=== PATIENT | male | born 1980 | race Caucasian/White ===

== ENCOUNTER 2023-02-21 01:21 | Outpatient (CLI) | payer SELFPAY | END 2023-02-21 01:22 | disposition home or self-care (01) | LOC: AMB 03-03 05:01 | PROVIDERS: Visit Provider Internal Medicine | DX: R06.09 Other forms of dyspnea (principal) | CPT/HCPCS: A0998 ==

== ENCOUNTER 2023-08-26 00:26 | Outpatient (CLI) | payer OTHER, SELFPAY | END 2023-08-26 00:27 | disposition home or self-care (01) | LOC: AMB 08-29 09:47 | PROVIDERS: PCP Family Medicine; Visit Provider Family Medicine | DX: F10.129 Alcohol abuse with intoxication, unspecified (principal) | CPT/HCPCS: A0998 ==

== ENCOUNTER 2023-08-26 00:59 | Outpatient (CLI) | payer OTHER, SELFPAY | END 2023-08-26 01:00 | disposition home or self-care (01) | LOC: AMB 09-01 11:18 | PROVIDERS: PCP Family Medicine; Visit Provider Family Medicine | DX: S01.81XA Laceration without foreign body of other part of head, initial encounter (principal); F10.129 Alcohol abuse with intoxication, unspecified; W01.190A Fall on same level from slipping, tripping and stumbling with subsequent striking against furniture, initial encounter; Y92.003 Bedroom of unspecified non-institutional (private) residence as the place of occurrence of the external cause | CPT/HCPCS: A0425; A0429 ==

== ENCOUNTER 2023-08-26 01:22 | Emergency (ER) | payer OTHER, SELFPAY ==
[2023-08-26 01:29] VITALS: BP 127/91; PULSE 75; RESP 16; TEMP 36.2; O2SAT 95; BMI 32.7
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
== END 2023-08-26 03:17 | disposition home or self-care (01) ==
LOC: ED 02:14
PROVIDERS: Emergency Provider Family Medicine; PCP Family Medicine
DX: S01.81XA Laceration without foreign body of other part of head, initial encounter (principal); W01.190A Fall on same level from slipping, tripping and stumbling with subsequent striking against furniture, initial encounter
CPT/HCPCS: 99282

== ENCOUNTER 2024-03-20 23:36 | Outpatient (CLI) | payer OTHER, SELFPAY ==
--- OUTSIDE RECORDS SUMMARY | 2024-03-25 07:14 | XMS_ITS | Continuity of Care Document ---
Author Name [facility] Organization [facility] Care Team Providers Care Wood Heel Fitter Machine Name Role Phone [facility] Unavailable Unavailable Immunizations Combined list of available immunizations from the Department of Defense and Veterans Affairs facilities. Immunization Series Date Given Administered By Site Reaction Lot Number CVX Code Drug Director Religious Education Status Comments Source COVID-19 ([employer] MRNA, LNP-S, PF, 30 MCG/0.3 ML DOSE 2 2020 208 complet ed PFR; [id number]; 1 [facility] COVID-19 (PFIZER), MRNA, LNP-S, PF, 30 MCG/0.3 ML DOSE 1 2020 208 complet ed PFR; [id number]; 1 [facility]
== END 2024-03-20 23:37 | disposition home or self-care (01) ==
LOC: AMB 03-25 07:13
PROVIDERS: PCP Family Medicine; Visit Provider Family Medicine
DX: R45.851 Suicidal ideations (principal)
CPT/HCPCS: A0425; A0427

== ENCOUNTER 2024-03-21 00:26 | Emergency (ER) | payer OTHER, SELFPAY ==
[2024-03-21] VITALS (66 sets, daily range): BP systolic 110–170; BP diastolic 59–111; PULSE 63–90; RESP 20; TEMP 36.8; O2SAT 88–96
--- NOTE | 2024-03-21 00:49 | ED.GENADULT ---
HPI - General Adult General Chief complaint: Psychiatric Problem/Disorder <Heidi June MD - Last Filed: 03/21/24 23:58> Stated complaint: Mental health <Heidi June MD - Last Filed: 03/21/24 23:58> Time Seen by Provider: 03/21/24 00:44 <Heidi June MD - Last Filed: 03/21/24 23:58> Source: EMS <Heidi June MD - Last Filed: 03/21/24 23:58> Mode of arrival: EMS <Heidi June MD - Last Filed: 03/21/24 23:58> Limitations: no limitations <Heidi June MD - Last Filed: 03/21/24 23:58> History of Present Illness HPI narrative: 43-year-old male that I have previously cared for presents to the emergency department by EMS because of suicidal ideation. Patient heavily intoxicated, found by family in such state as well. He had texted several family members the I indicating that he was sorry though he stated no specific reason and that he was going to end his life. There was also a written note at the foot of his bed with similar language found by family when they went to check on him. He was drunk but breathing in his bed, difficult to arouse but not coma toes. There was an old bottle of bupropion in the room but no evidence to suggest that he had taken any. He does not have access to firearms or weapons. He has not been showing any signs of recent self-injury. He has a long standing history of alcoholism. I have cared for him previously with mild injuries secondary to intoxication. He is heavily intoxicated and does not give any additional history upon arrival. EMS has placed him on a hold. History from patient is completely limited by his intoxicated state. Review of the records does not suggest that he is on long-term medications. He has not previously been known to abuse other drugs besides alcohol. We have not previously known him to have seizures. I cannot tell if he has been treated inpatient in the past. I do not know if he has had prior suicide attempts. Past medical history is limited to records only. It does not appear as though he has long-term medical problems or recent surgeries. Chronic alcoholism. There is an ex- listed in his emergency contacts but he has been documented in the last few visits to have a romantic male partner. ROS is unable to be obtained but I did review with EMS and they still had not noted any signs of illness or recent significant changes in health status from the family. <Heidi June MD - Last Filed: 03/21/24 23:58> Related Data Home medications: Home Medications ?Medication ?Instructions ?Recorded ?Confirmed Unobtainable 03/21/24 03/21/24 <Heidi June MD - Last Filed: 03/21/24 23:58> Allergies/adverse reactions: Allergies Allergy/AdvReac Type Severity Reaction Status Date / Time amoxicillin Allergy Verified 02/21/23 02:25 penicillin G Allergy Verified 02/21/23 02:25 <Heidi June MD - Last Filed: 03/21/24 23:58> [facility] Social History: Social History Smoking Status: Current every day smoker How often do you have a drink containing alcohol: 2-4 times a month AUDIT-C Alcohol total score: 2 Non-prescribed substance use: denies use <Heidi June MD - Last Filed: 03/21/24 23:58> Exam Const: Vital Signs, click to edit/add: Vital Signs - 24 hr 03/21/24 00:42 03/21/24 01:04 03/21/24 01:07 Temperature 98.2 F Pulse Rate 81 80 Pulse Rate [Pulse Oximeter] 90 Respiratory Rate 20 Blood Pressure 111/63 Blood Pressure [Ri ght Upper Arm] 115/66 Pulse Oximetry 93 90 Oxygen Delivery Me thod Room Air 03/21/24 01:15 03/21/24 01:16 03/21/24 01:30 Temperature Pulse Rate 84 84 85 Pulse Rate [Pulse Oximeter] Respiratory Rate Blood Pressure 110/61 Blood Pressure [Ri ght Upper Arm] Pulse Oximetry 90 Oxygen Delivery Me thod 03/21/24 01:31 03/21/24 01:45 03/21/24 01:47 Temperature Pulse Rate 85 86 84 Pulse Rate [Pulse Oximeter] Respiratory Rate Blood Pressure 119/64 111/63 Blood Pressure [Ri ght Upper Arm] Pulse Oximetry 90 90 Oxygen Delivery Me thod 03/21/24 02:00 03/21/24 02:02 03/21/24 02:15 Temperature Pulse Rate 82 85 84 Pulse Rate [Pulse Oximeter] Respiratory Rate Blood Pressure 112/59 L Blood Pressure [Ri ght Upper Arm] Pulse Oximetry 90 90 90 Oxygen Delivery Me thod 03/21/24 02:16 03/21/24 02:30 03/21/24 02:31 Temperature Pulse Rate 78 79 75 Pulse Rate [Pulse Oximeter] Respiratory Rate Blood Pressure 115/67 120/62 Blood Pressure [Ri ght Upper Arm] Pulse Oximetry 90 91 91 Oxygen Delivery Me thod 03/21/24 02:32 03/21/24 02:45 03/21/24 02:47 Temperature Pulse Rate 77 74 76 Pulse Rate [Pulse Oximeter] Respiratory Rate Blood Pressure 114/65 Blood Pressure [Ri ght Upper Arm] Pulse Oximetry 91 91 91 Oxygen Delivery Me thod 03/21/24 03:00 03/21/24 03:02 03/21/24 03:15 Temperature Pulse Rate 78 80 78 Pulse Rate [Pulse Oximeter] Respiratory Rate Blood Pressure 117/71 Blood Pressure [Ri ght Upper Arm] Pulse Oximetry 91 91 92 Oxygen Delivery Me thod 03/21/24 03:16 03/21/24 03:30 03/21/24 03:31 Temperature Pulse Rate 76 74 76 Pulse Rate [Pulse Oximeter] Respiratory Rate Blood Pressure 119/70 120/71 Blood Pressure [Ri ght Upper Arm] Pulse Oximetry 92 92 92 Oxygen Delivery Me thod 03/21/24 03:47 03/21/24 04:01 03/21/24 04:16 Temperature Pulse Rate Pulse Rate [Pulse Oximeter] Respiratory Rate Blood Pressure 115/61 115/63 120/70 Blood Pressure [Ri ght Upper Arm] Pulse Oximetry Oxygen Delivery Me thod 03/21/24 04:31 03/21/24 04:35 03/21/24 04:45 Temperature Pulse Rate 90 66 Pulse Rate [Pulse Oximeter] Respiratory Rate Blood Pressure 123/100 H Blood Pressure [Ri ght Upper Arm] Pulse Oximetry 94 95 Oxygen Delivery Me thod 03/21/24 04:46 03/21/24 05:00 03/21/24 05:01 Temperature Pulse Rate 64 63 76 Pulse Rate [Pulse Oximeter] Respiratory Rate Blood Pressure 135/78 135/99 H Blood Pressure [Ri ght Upper Arm] Pulse Oximetry 94 91 91 Oxygen Delivery Me thod 03/21/24 05:15 03/21/24 05:16 03/21/24 05:30 Temperature Pulse Rate 75 67 69 Pulse Rate [Pulse Oximeter] Respiratory Rate Blood Pressure 132/86 Blood Pressure [Ri ght Upper Arm] Pulse Oximetry 90 90 92 Oxygen Delivery Me thod 03/21/24 05:32 03/21/24 05:45 03/21/24 05:47 Temperature Pulse Rate 65 73 72 Pulse Rate [Pulse Oximeter] Respiratory Rate Blood Pressure 148/96 H 135/86 Blood Pressure [Ri ght Upper Arm] Pulse Oximetry 91 88 88 Oxygen Delivery Ca thod 03/21/24 06:00 03/21/24 06:01 03/21/24 06:15 Temperature Pulse Rate 76 70 78 Pulse Rate [Pulse Oximeter] Respiratory Rate Blood Pressure 135/88 Blood Pressure [Ri ght Upper Arm] [facility]ulse [facility]ximetry 88 89 [facility] 06:16 03/21/24 06:30 03/21/24 06:32 Temperature Pulse Rate 72 72 74 Pulse Rate [Pulse Oximeter] Respiratory Rate Blood Pressure 127/86 129/88 Blood Pressure [Ri ght Upper Arm] Pulse Oximetry 89 88 89 [facility] 06:45 03/21/24 06:47 03/21/24 07:00 Temperature Pulse Rate 74 73 67 Pulse Rate [Pulse Oximeter] Respiratory Rate Blood Pressure 137/86 Blood Pressure [Ri ght Upper Arm] Pulse Oximetry 90 90 89 [facility] 07:01 03/21/24 07:15 03/21/24 07:16 Temperature Pulse Rate 71 71 69 Pulse Rate [Pulse Oximeter] Respiratory Rate Blood Pressure 131/85 133/88 Blood Pressure [Ri ght Upper Arm] Pulse Oximetry 89 90 89 Oxygen Delivery Ca thod 03/21/24 07:30 03/21/24 07:32 03/21/24 07:45 Temperature Pulse Rate 67 68 81 Pulse Rate [Pulse Oximeter] Respiratory Rate Blood Pressure 133/89 Blood Pressure [Ri ght Upper Arm] Pulse Oximetry 90 90 96 Oxygen Delivery Me od 03/21/24 07:48 03/21/24 08:02 03/21/24 08:17 Temperature Pulse Rate 69 Pulse Rate [Pulse Oximeter] Respiratory Rate Blood Pressure 156/91 H 137/89 132/83 Blood Pressure [Ri ght Upper Arm] Pulse Oximetry 94 Oxygen Delivery Me thod 03/21/24 08:31 03/21/24 08:48 03/21/24 08:58 Temperature Pulse Rate 66 Pulse Rate [Pulse Oximeter] Respiratory Rate Blood Pressure 124/83 145/111 H Blood Pressure [Ri ght Upper Arm] Pulse Oximetry 93 Oxygen Delivery Me thod 03/21/24 09:00 03/21/24 09:03 03/21/24 09:15 Temperature Pulse Rate 63 71 Pulse Rate [Pulse Oximeter] Respiratory Rate Blood Pressure 170/95 H Blood Pressure [Ri ght Upper Arm] Pulse Oximetry 94 96 Oxygen Delivery Me thod 03/21/24 09:17 03/21/24 09:18 03/21/24 09:32 Temperature Pulse Rate 64 65 Pulse Rate [Pulse Oximeter] Respiratory Rate Blood Pressure 152/88 H 148/94 H Blood Pressure [Ri ght Upper Arm] Pulse Oximetry 95 95 Oxygen Delivery Me thod <Heidi June MD - Last Filed: 03/21/24 23:58> Vital Signs, click to edit/add: Vital Signs - 24 hr 03/21/24 00:42 03/21/24 01:04 03/21/24 01:07 Temperature 98.2 F Pulse Rate 81 80 Pulse Rate [Pulse Oximeter] 90 Respiratory Rate 20 Blood Pressure 111/63 Blood Pressure [Ri ght Upper Arm] 115/66 Pulse Oximetry 93 90 Oxygen Delivery Me thod Room Air 03/21/24 01:15 03/21/24 01:16 03/21/24 01:30 Temperature Pulse Rate 84 84 85 Pulse Rate [Pulse Oximeter] Respiratory Rate Blood Pressure 110/61 Blood Pressure [Ri ght Upper Arm] Pulse Oximetry 90 Oxygen Delivery Me thod 03/21/24 01:31 03/21/24 01:45 03/21/24 01:47 Temperature Pulse Rate 85 86 84 Pulse Rate [Pulse Oximeter] Respiratory Rate Blood Pressure 119/64 111/63 Blood Pressure [Ri ght Upper Arm] Pulse Oximetry 90 90 Oxygen Delivery Me thod 03/21/24 02:00 03/21/24 02:02 03/21/24 02:15 Temperature Pulse Rate 82 85 84 Pulse Rate [Pulse Oximeter] Respiratory Rate Blood Pressure 112/59 L Blood Pressure [Ri ght Upper Arm] Pulse Oximetry 90 90 90 Oxygen Delivery Me thod 03/21/24 02:16 03/21/24 02:30 03/21/24 02:31 Temperature Pulse Rate 78 79 75 Pulse Rate [Pulse Oximeter] Respiratory Rate Blood Pressure 115/67 120/62 Blood Pressure [Ri ght Upper Arm] Pulse Oximetry 90 91 91 Oxygen Delivery Me thod 03/21/24 02:32 03/21/24 02:45 03/21/24 02:47 Temperature Pulse Rate 77 74 76 Pulse Rate [Pulse Oximeter] Respiratory Rate Blood Pressure 114/65 Blood Pressure [Ri ght Upper Arm] Pulse Oximetry 91 91 91 Oxygen Delivery Me thod 03/21/24 03:00 03/21/24 03:02 03/21/24 03:15 Temperature Pulse Rate 78 80 78 Pulse Rate [Pulse Oximeter] Respiratory Rate Blood Pressure 117/71 Blood Pressure [Ri ght Upper Arm] Pulse Oximetry 91 91 92 Oxygen Delivery Me thod 03/21/24 03:16 03/21/24 03:30 03/21/24 03:31 Temperature Pulse Rate 76 74 76 Pulse Rate [Pulse Oximeter] Respiratory Rate Blood Pressure 119/70 120/71 Blood Pressure [Ri ght Upper Arm] Pulse Oximetry 92 92 92 Oxygen Delivery Me thod 03/21/24 03:47 03/21/24 04:01 03/21/24 04:16 Temperature Pulse Rate Pulse Rate [Pulse Oximeter] Respiratory Rate Blood Pressure 115/61 115/63 120/70 Blood Pressure [Ri ght Upper Arm] Pulse Oximetry Oxygen Delivery Me thod 03/21/24 04:31 03/21/24 04:35 03/21/24 04:45 Temperature Pulse Rate 90 66 Pulse Rate [Pulse Oximeter] Respiratory Rate Blood Pressure 123/100 H Blood Pressure [Ri ght Upper Arm] Pulse Oximetry 94 95 Oxygen Delivery Me thod 03/21/24 04:46 03/21/24 05:00 03/21/24 05:01 Temperature Pulse Rate 64 63 76 Pulse Rate [Pulse Oximeter] Respiratory Rate Blood Pressure 135/78 135/99 H Blood Pressure [Ri ght Upper Arm] Pulse Oximetry 94 91 91 Oxygen Delivery Me thod 03/21/24 05:15 03/21/24 05:16 03/21/24 05:30 Temperature Pulse Rate 75 67 69 Pulse Rate [Pulse Oximeter] Respiratory Rate Blood Pressure 132/86 Blood Pressure [Ri ght Upper Arm] Pulse Oximetry 90 90 92 Oxygen Delivery Me thod 03/21/24 05:32 03/21/24 05:45 03/21/24 05:47 Temperature Pulse Rate 65 73 72 Pulse Rate [Pulse Oximeter] Respiratory Rate Blood Pressure 148/96 H 135/86 Blood Pressure [Ri ght Upper Arm] Pulse Oximetry 91 88 88 Oxygen Delivery Me thod 03/21/24 06:00 03/21/24 06:01 03/21/24 06:15 Temperature Pulse Rate 76 70 78 Pulse Rate [Pulse Oximeter] Respiratory Rate Blood Pressure 135/88 Blood Pressure [Ri ght Upper Arm] Pulse Oximetry 88 89 88 Oxygen Delivery Me thod 03/21/24 06:16 03/21/24 06:30 03/21/24 06:32 Temperature Pulse Rate 72 72 74 Pulse Rate [Pulse Oximeter] Respiratory Rate Blood Pressure 127/86 129/88 Blood Pressure [Ri ght Upper Arm] Pulse Oximetry 89 88 89 Oxygen Delivery Me thod 03/21/24 06:45 03/21/24 06:47 03/21/24 07:00 Temperature Pulse Rate 74 73 67 Pulse Rate [Pulse Oximeter] Respiratory Rate Blood Pressure 137/86 Blood Pressure [Ri ght Upper Arm] Pulse Oximetry 90 90 89 Oxygen Delivery Ca thod 03/21/24 07:01 03/21/24 07:15 03/21/24 07:16 Temperature Pulse Rate 71 71 69 Pulse Rate [Pulse Oximeter] Respiratory Rate Blood Pressure 131/85 133/88 Blood Pressure [Ri ght Upper Arm] Pulse Oximetry 89 90 89 Oxygen Delivery Me thod 03/21/24 07:30 03/21/24 07:32 03/21/24 07:45 Temperature Pulse Rate 67 68 81 Pulse Rate [Pulse Oximeter] Respiratory Rate Blood Pressure 133/89 Blood Pressure [Ri ght Upper Arm] Pulse Oximetry 90 90 96 Oxygen Delivery Me thod 03/21/24 07:48 03/21/24 08:02 03/21/24 08:17 Temperature Pulse Rate 69 Pulse Rate [Pulse Oximeter] Respiratory Rate Blood Pressure 156/91 H 137/89 132/83 Blood Pressure [Ri ght Upper Arm] Pulse Oximetry 94 Oxygen Delivery Me thod 03/21/24 08:31 03/21/24 08:48 03/21/24 08:58 Temperature Pulse Rate 66 Pulse Rate [Pulse Oximeter] Respiratory Rate Blood Pressure 124/83 145/111 H Blood Pressure [Ri ght Upper Arm] Pulse Oximetry 93 Oxygen Delivery Me thod 03/21/24 09:00 03/21/24 09:03 03/21/24 09:15 Temperature Pulse Rate 63 71 Pulse Rate [Pulse Oximeter] Respiratory Rate Blood Pressure 170/95 H Blood Pressure [Ri ght Upper Arm] Pulse Oximetry 94 96 Oxygen Delivery Me thod 03/21/24 09:17 03/21/24 09:18 03/21/24 09:32 Temperature Pulse Rate 64 65 Pulse Rate [Pulse Oximeter] Respiratory Rate Blood Pressure 152/88 H 148/94 H Blood Pressure [Ri ght Upper Arm] Pulse Oximetry 95 95 Oxygen Delivery Me thod <Domenic Heller MD - Last Filed: 03/21/24 11:11> Documenting provider has reviewed patient's vital signs: yes <Heidi June MD - Last Filed: 03/21/24 23:58> Common normals: alert <Heidi June MD - Last Filed: 03/21/24 23:58> Other: He arrives agitated by EMS, trying to stand up on the bed in room 8. It clear that he needs to urinate by the way he is from bleeding with his sweatpants. We are able to redirect him down to safety. After he urinates all over the bed and the floor he does calm down considerably. He requires frequent redirection while we are changing his bedding but once he is covered with warm blankets, heal as exam with no other signs of irritability or agitation. He does not appear to have any lacerations, bruising or signs of trauma on his body. <Hiedi June MD - Last Filed: 03/21/24 23:58> HENMT: Common normals: normocephalic, head/scalp atraumatic, moist oral mucous membranes, oropharynx normal and dentition normal <MD Kev Muse Last Filed: 03/21/24 23:58> Head and scalp: normocephalic and atraumatic <MD Kev Muse Last Filed: 03/21/24 23:58> Eye: Common normals: PERRL, EOMs intact bilaterally and conjunctivae normal <MD Kev Muse Last Filed: 03/21/24 23:58> General eye: normal appearance of both eyes <MD Kev Muse Last Filed: 03/21/24 23:58> Conjunctiva: conjunctiva(e) normal <MD Kev Muse Last Filed: 03/21/24 23:58> Pupil: PERRL <MD Kve Muse Last Filed: 03/21/24 23:58> Neck & C-Spine: Common normals: no lymphadenopathy <MD Kev Muse Last Filed: 03/21/24 23:58> General: normal visual inspection <MD Kev Muse Last Filed: 03/21/24 23:58> Chest: Common normals: inspection of chest normal <MD Kev Muse Last Filed: 03/21/24 23:58> Resp: Common normals: normal respiratory effort, no use of accessory muscles and clear to auscultation bilaterally <MD Kev Muse Last Filed: 03/21/24 23:58> Effort & inspection: able to speak in complete sentences <MD Kev Muse Last Filed: 03/21/24 23:58> Auscultation: clear to auscultation bilaterally <MD Kev Muse Last Filed: 03/21/24 23:58> Cardio: Common normals: regular rate, regular rhythm, S1 normal heart sound, S2 normal heart sound and no murmurs <MD Kev Muse Last Filed: 03/21/24 23:58> Rate: regular rate <MD Kev Muse Last Filed: 03/21/24 23:58> Rhythm: regular rhythm <MD Kev Muse Last Filed: 03/21/24 23:58> Heart sounds: S1 normal and S2 normal <Heidi June MD - Last Filed: 03/21/24 23:58> GI: Common normals: Normal to inspection, nondistended, normoactive bowel sounds present, soft to palpation, non-tender and no masses <Heidi June MD - Last Filed: 03/21/24 23:58> Palpation: soft <Heidi June MD - Last Filed: 03/21/24 23:58> Other: Liver 2 cm enlarged beyond costal margin <Heidi June MD - Last Filed: 03/21/24 23:58> Back & Pelvis: Common normals: thoracic and lumbar spine normal to inspection <MD Kev Muse Last Filed: 03/21/24 23:58> Extremity: Common normals: normal to inspection, normal capillary refill and no joint enlargement <Heidi June MD - Last Filed: 03/21/24 23:58> Neuro: Sensorium/orientation: alert <MD Kev Muse Last Filed: 03/21/24 23:58> Other: Moves all extremities with no signs of tremor. Exam is quite limited by his intoxicated state <Heidi June MD - Last Filed: 03/21/24 23:58> Psych: Appearance: grossly normal <Heidi June MD - Last Filed: 03/21/24 23:58> Other: Intoxicated. <Heidi Juen MD - Last Filed: 03/21/24 23:58> Skin: Common normals: no rashes or lesions noted <MD Kev Muse Last Filed: 03/21/24 23:58> General skin exam: no rashes or lesions noted <MD Kev Muse Last Filed: 03/21/24 23:58> Course Course ED Course: Heavily intoxicated 43-year-old male presenting with suicidal ideation and threats to family. Unknown prior history of inpatient treatment or prior suicide attempts. Initially agitated but this improved markedly after he was able to urinate. No signs of obvious trauma or injury otherwise. Uncertain if he is truly suicidal or if this is substance induced. Will obtain typical mental health labs, placed on suicide precautions. I will review the hold that is in place in if it is insufficient, I will sign a new 1. He will need mental health evaluation but not until he is sober. Will give 5 mg of Zyprexa and 4 mg of Zofran and banana bag due to his chronic alcoholism. Await clinical response, alcohol level for appropriate timing of additional interventions. <Heidi June MD - Last Filed: 03/21/24 23:58> Reevaluation(s) Time of Reevaluation #1: 02:05 <Heidi June MD - Last Filed: 03/21/24 23:58> Reevaluation #1: Labs reviewed, patient is sleeping. Vital signs stable, not requiring oxygen. No signs of any toxic ingestion besides alcohol. Not exhibiting any irritability, tremor, tachycardia. Patient's blood alcohol level is 0.27. Will require 5-6 hours prior to mental health assessment. Will plan to await in coming day shift team. <Heidi June MD - Last Filed: 03/21/24 23:58> Vital Signs Vital signs: Initial Vital Signs Temperature 98.2 F 03/21/24 00:42 Temperature Source Temporal Artery Scan 03/21/24 00:42 Pulse Rate 90 03/21/24 00:42 Pulse Rhythm Regular 03/21/24 00:42 Respiratory Rate 20 03/21/24 00:42 Blood Pressure 115/66 03/21/24 00:42 Blood Pressure Mean 82 03/21/24 00:42 Pulse Oximetry 93 03/21/24 00:42 Oxygen Delivery Method Room Air 03/21/24 00:42 Vital Signs Temperature 98.2 F 03/21/24 00:42 Pulse Rate 90 03/21/24 00:42 Respiratory Rate 20 03/21/24 00:42 Blood Pressure 115/66 03/21/24 00:42 Pulse Oximetry 93 03/21/24 00:42 Oxygen Delivery Method Room Air 03/21/24 00:42 Temperature 98.2 F 03/21/24 00:42 Pulse Rate 65 03/21/24 09:18 Respiratory Rate 20 03/21/24 00:42 Blood Pressure 148/94 H 03/21/24 09:32 Pulse Oximetry 95 03/21/24 09:18 Oxygen Delivery Method Room Air 03/21/24 00:42 <Heidi June MD - Last Filed: 03/21/24 23:58> Initial Vital Signs Temperature 98.2 F 03/21/24 00:42 Temperature Source Temporal Artery Scan 03/21/24 00:42 Pulse Rate 90 03/21/24 00:42 Pulse Rhythm Regular 03/21/24 00:42 Respiratory Rate 20 03/21/24 00:42 Blood Pressure 115/66 03/21/24 00:42 Blood Pressure Mean 82 03/21/24 00:42 Pulse Oximetry 93 03/21/24 00:42 Oxygen Delivery Method Room Air 03/21/24 00:42 Vital Signs Temperature 98.2 F 03/21/24 00:42 Pulse Rate 90 03/21/24 00:42 Respiratory Rate 20 03/21/24 00:42 Blood Pressure 115/66 03/21/24 00:42 Pulse Oximetry 93 03/21/24 00:42 Oxygen Delivery Method Room Air 03/21/24 00:42 Temperature 98.2 F 03/21/24 00:42 Pulse Rate 65 03/21/24 09:18 Respiratory Rate 20 03/21/24 00:42 Blood Pressure 148/94 H 03/21/24 09:32 Pulse Oximetry 95 03/21/24 09:18 Oxygen Delivery Method Room Air 03/21/24 00:42 <Domenic Heller MD - Last Filed: 03/21/24 11:11> Medications Administered Medications: Discontinued Medications Generic Name Dose Route Start Last Admin Trade Name Freq PRN Reason Stop Dose Admin Folic Acid 1 mg/ Multivitamins 1,011.2 mls @ 252.8 mls/hr 03/21/24 00:41 03/21/24 05:19 10 ml/ Thiamine HCl 100 mg/ IV 03/21/24 04:40 Infused Sodium Chloride .Q4H CADY Infusion Olanzapine 5 mg 03/21/24 00:39 03/21/24 01:03 Olanzapine 5 Mg/Ml Inj IVP 03/21/24 00:40 5 mg ONCE ONE Administration Ondansetron HCl 4 mg 03/21/24 00:39 03/21/24 01:03 Ondansetron 2 Mg/Ml Inj IVP 03/21/24 00:40 4 mg ONCE ONE Administration <Heidi June MD - Last Filed: 03/21/24 23:58> Discontinued Medications Generic Name Dose Route Start Last Admin Trade Name Tomás PRN Reason Stop Dose Admin Folic Acid 1 mg/ Multivitamins 1,011.2 mls @ 252.8 mls/hr 03/21/24 00:41 03/21/24 05:19 10 ml/ Thiamine HCl 100 mg/ IV 03/21/24 04:40 Infused Sodium Chloride .Q4H CADY Infusion Olanzapine 5 mg 03/21/24 00:39 03/21/24 01:03 Olanzapine 5 Mg/Ml Inj IVP 03/21/24 00:40 5 mg ONCE ONE Administration Ondansetron HCl 4 mg 03/21/24 00:39 03/21/24 01:03 Ondansetron 2 Mg/Ml Inj IVP 03/21/24 00:40 4 mg ONCE ONE Administration <Domenic Heller MD - Last Filed: 03/21/24 11:11> Medical Decision Making MDM Narrative Medical decision making narrative: This patient came in last evening under the influence of alcohol and had made some suicidal statements at that time. He has slept now through the night and his alcohol level is significantly reduced. He is pleasant and cooperative and did undergo a mental health assessment done by Carlene in our oncology social worker department. He states that he has not ever attempted to harm himself but has had thoughts of not wanting to live as he struggles with alcohol. He states that he has resources around him and was in fact in treatment until his employer are fired him any lost the benefits of the treatment. He is interested in a program out of [place] that is free for those who do not have insurance. The patient will be able to return home to stay with his mother. <Domenic Heller MD - Last Filed: 03/21/24 11:11> Lab Data Lab results reviewed: Yes I reviewed the patient's lab results <Heidi June MD - Last Filed: 03/21/24 23:58> Lab results narrative: Blood alcohol markedly elevated. Liver enzymes very mildly elevated, not unexpected with his history of alcoholism. Remainder of labs unremarkable. <Heidi June MD - Last Filed: 03/21/24 23:58> Labs: Lab Results 03/21/24 03/21/24 Range/Units 01:30 08:56 WBC 3.48 L (4.50-11.00) K/uL RBC 4.62 (4.30-5.90) m/uL Hgb 15.3 (13.5-17.5) gm/dL Hct 43.5 (37.0-53.0) % MCV 94 (80-100) fL MCH 33 (26-34) pg MCHC 35 (32-36) gm/dL RDW Coeff of [place] 11.7 (11.5-15.5) % Plt Count 150 (140-440) K/uL Neut % (Auto) 51.4 (42.0-72.0) % Lymph % (Auto) 37.9 (20-44) % [place] % (Auto) 7.5 (0.0-11.0) % Eos % (Auto) 2.3 (0.0-7.0) % Baso % (Auto) 0.6 (0.0-3.0) % Neut # (Auto) 1.80 (1.7-7.0) K/uL Lymph # (Auto) 1.30 (0.90-2.90) K/uL Morton # (Auto) 0.30 (0.00-0.90) K/UL Eos # (Auto) 0.10 (0.00-0.50) K/uL Baso # (Auto) 0.00 (0.00-0.30) K/uL Abs Immat Gran (auto) 0.00 (0.00-0.30) K/uL Imm/Tot Granulo (auto) 0.3 % Sodium 147 (135-149) mmol/L Potassium 3.8 (3.6-5.1) mmol/L Chloride 110 (96-114) mmol/L Carbon Dioxide 24 (20-32) mmol/L Anion Gap 13 (7-15) mEq/L BUN 8 (5-24) mg/dL Creatinine 0.8 (0.5-1.5) mg/dL Estimated GFR 113 ml/min Glucose 94 (60-115) mg/dL Calcium 8.1 L (8.4-10.6) mg/dL Total Bilirubin 0.7 (0.1-1.5) mg/dL AST 40 H (12-35) U/L ALT 25 (4-50) U/L Alkaline Phosphatase 69 (40-150) U/L Total Protein 7.0 (6.0-8.3) g/dL Albumin 4.5 (3.3-5.0) g/dL Urine Color Yellow (Yellow) Urine Appearance Clear (Clear) Urine pH 6.5 (5.0-8.5) Ur Specific [place] 1.020 (1.000-1.030) Urine Protein Negative (Negative) Urine Glucose (UA) Negative (Negative) Urine Ketones Negative (Negative) Urine Blood Negative (Negative) Urine Nitrite Negative (Negative) Urine Bilirubin Negative (Negative) Urine Urobilinogen 0.2 (0.2-1.0) Ur Leukocyte Esterase Negative (Negative) Salicylates < 1.0 L (1.0-10) mg/dL Urine Opiates Screen Negative (Negative) Ur Oxycodone Screen Negative (Negative) Urine Methadone Screen Negative (Negative) Acetaminophen < 10.0 L (10.0-30.0) ug/mL Ur Barbiturates Screen Negative (Negative) U Tricyclic Antidepress Negative (Negative) Ur Phencyclidine Scrn Negative (Negative) Ur Amphetamines Screen Negative (Negative) U Methamphetamines Scrn Negative (Negative) U Benzodiazepines Scrn Negative (Negative) Urine Cocaine Screen Negative (Negative) U Marijuana (THC) Screen Negative (Negative) Ur Drug Screen Comment See Note Ethyl Alcohol 0.27 H (0.01-0.03) % <Heidi June MD - Last Filed: 03/21/24 23:58> Lab Results 03/21/24 03/21/24 Range/Units 01:30 08:56 WBC 3.48 L (4.50-11.00) K/uL RBC 4.62 (4.30-5.90) m/uL Hgb 15.3 (13.5-17.5) gm/dL Hct 43.5 (37.0-53.0) % MCV 94 (80-100) fL MCH 33 (26-34) pg MCHC 35 (32-36) gm/dL RDW Coeff of [place] 11.7 (11.5-15.5) % Plt Count 150 (140-440) K/uL Neut % (Auto) 51.4 (42.0-72.0) % Lymph % (Auto) 37.9 (20-44) % Morton % (Auto) 7.5 (0.0-11.0) % Eos % (Auto) 2.3 (0.0-7.0) % Baso % (Auto) 0.6 (0.0-3.0) % Neut # (Auto) 1.80 (1.7-7.0) K/uL Lymph # (Auto) 1.30 (0.90-2.90) K/uL Morton # (Auto) 0.30 (0.00-0.90) K/UL Eos # (Auto) 0.10 (0.00-0.50) K/uL Baso # (Auto) 0.00 (0.00-0.30) K/uL Abs Immat Gran (auto) 0.00 (0.00-0.30) K/uL Imm/Tot Granulo (auto) 0.3 % Sodium 147 (135-149) mmol/L Potassium 3.8 (3.6-5.1) mmol/L Chloride 110 (96-114) mmol/L Carbon Dioxide 24 (20-32) mmol/L Anion Gap 13 (7-15) mEq/L BUN 8 (5-24) mg/dL Creatinine 0.8 (0.5-1.5) mg/dL Estimated GFR 113 ml/min Glucose 94 (60-115) mg/dL Calcium 8.1 L (8.4-10.6) mg/dL Total Bilirubin 0.7 (0.1-1.5) mg/dL AST 40 H (12-35) U/L ALT 25 (4-50) U/L Alkaline Phosphatase 69 (40-150) U/L Total Protein 7.0 (6.0-8.3) g/dL Albumin 4.5 (3.3-5.0) g/dL Urine Color Yellow (Yellow) Urine Appearance Clear (Clear) Urine pH 6.5 (5.0-8.5) Ur Specific [place] 1.020 (1.000-1.030) Urine Protein Negative (Negative) Urine Glucose (UA) Negative (Negative) Urine Ketones Negative (Negative) Urine Blood Negative (Negative) Urine Nitrite Negative (Negative) Urine Bilirubin Negative (Negative) Urine Urobilinogen 0.2 (0.2-1.0) Ur Leukocyte Esterase Negative (Negative) Salicylates < 1.0 L (1.0-10) mg/dL Urine Opiates Screen Negative (Negative) Ur Oxycodone Screen Negative (Negative) Urine Methadone Screen Negative (Negative) Acetaminophen < 10.0 L (10.0-30.0) ug/mL Ur Barbiturates Screen Negative (Negative) U Tricyclic Antidepress Negative (Negative) Ur Phencyclidine Scrn Negative (Negative) Ur Amphetamines Screen Negative (Negative) U Methamphetamines Scrn Negative (Negative) U Benzodiazepines Scrn Negative (Negative) Urine Cocaine Screen Negative (Negative) U Marijuana (THC) Screen Negative (Negative) Ur Drug Screen Comment See Note Ethyl Alcohol 0.27 H (0.01-0.03) % <Domenic Heller MD - Last Filed: 03/21/24 11:11> Discharge Plan Discharge Clinical Impression: Alcohol intoxication <Heidi June MD - Last Filed: 03/21/24 23:58> Patient Disposition: Home w/ Parent or Adult <Heidi June MD - Last Filed: 03/21/24 23:58> Condition: Improved <Heidi June MD - Last Filed: 03/21/24 23:58> Additional Instructions: Avoid alcohol and follow up with available resources as provided by drug abuse social worker. Follow up with MD or return if worsening. <Heidi June MD - Last Filed: 03/21/24 23:58> Prescriptions: No Action Unobtainable <Heidi June MD - Last Filed: 03/21/24 23:58> Follow Up/Referrals: Milton Mederos MD [Primary Care Provider] - <Heidi June MD - Last Filed: 03/21/24 23:58> Stand Alone Forms: MyHealth Info Instructions <Heidi June MD - Last Filed: 03/21/24 23:58>
[2024-03-21] MEDS: OLANZapine 5 MG/ML inj IVP (01:03)
[2024-03-21] MEDS: ONDANSETRON 2 MG/ML inj 4 MG IVP (01:03)
--- OUTSIDE RECORDS SUMMARY | 2024-03-21 01:05 | XMS_ITS | Continuity of Care Document ---
Author Name [facility] Organization [facility] Care Team Providers Care Phototypesetting Equipment Monitor Name Role Phone [facility] Unavailable Unavailable Immunizations Combined list of available immunizations from the Department of Defense and Veterans Affairs facilities. Immunization Series Date Given Administered By Site Reaction Lot Number CVX Code Drug Clothing Examiner Status Comments Source COVID-19 (Mobile Complete), MRNA, LNP-S, PF, 30 MCG/0.3 ML DOSE 2 2020 208 complet ed PFR; [id number]; 1 [facility] COVID-19 (PFIZER), MRNA, LNP-S, PF, 30 MCG/0.3 ML DOSE 1 2020 208 complet ed PFR; [id number]; 1 [facility]
[2024-03-21 01:36] LABS: Basophils Percent Auto 0.6 % (0.0-3.0); Eosinophils Percent Auto 2.3 % (0.0-7.0); Hematocrit 43.5 % (37.0-53.0); Hemoglobin* 15.3 gm/dL (13.5-17.5); Immature Granulocytes Pct Auto 0.3 %; Lymphocytes Percent Auto 37.9 % (20-44); Mean Corpuscular HGB Conc 35 gm/dL (32-36); Mean Corpuscular Hemoglobin 33 pg (26-34); Mean Corpuscular Volume 94 fL (80-100); Monocytes Percent Auto 7.5 % (0.0-11.0); Neutrophils Percent Auto 51.4 % (42.0-72.0); Platelet Count* 150 K/uL (140-440); RDW Coefficient of Variation % 11.7 % (11.5-15.5); Red Blood Count 4.62 m/uL (4.30-5.90); White Blood Count* 3.48 K/uL (4.50-11.00)
[2024-03-21 01:39] LABS: Slide Review Reflex No
[2024-03-21 01:48] LABS: Albumin* 4.5 g/dL (3.3-5.0); Chloride* 110 mmol/L (96-114)
[2024-03-21 01:49] LABS: Potassium* 3.8 mmol/L (3.6-5.1); Sodium* 147 mmol/L (135-149)
[2024-03-21 01:51] LABS: Anion Gap 13 mEq/L (7-15); Aspartate Amino Transferase* 40 U/L (12-35); Bilirubin Total* 0.7 mg/dL (0.1-1.5); Carbon Dioxide* 24 mmol/L (20-32); Creatinine* 0.8 mg/dL (0.5-1.5); Estimated Glomerular Filt Rate 113 ml/min
[2024-03-21 01:52] LABS: Alanine Aminotransferase* 25 U/L (4-50); Alkaline Phosphatase* 69 U/L (40-150); Blood Urea Nitrogen* 8 mg/dL (5-24); Calcium* 8.1 mg/dL (8.4-10.6); Ethanol* 0.27 % (0.01-0.03); Glucose* 94 mg/dL (60-115)
[2024-03-21 01:56] LABS: Acetaminophen* < 10.0 ug/mL (10.0-30.0); Salicylate* < 1.0 mg/dL (1.0-10)
[2024-03-21 09:12] LABS: Appearance Urine Clear (Clear); Bilirubin Urine Negative (Negative); Blood Urine Negative (Negative); Color Urine Yellow (Yellow); Glucose Urine Negative (Negative); Ketones Urine Negative (Negative); Leukocyte Esterase Urine Negative (Negative); Nitrite Urine Negative (Negative); Protein Urine Negative (Negative); Urobilinogen Urine 0.2 (0.2-1.0); pH Urine 6.5 (5.0-8.5)
[2024-03-21 09:18] LABS: Amphetamine Screen Urine Negative (Negative); Barbiturate Screen Urine Negative (Negative); Benzodiazepines Screen Urine Negative (Negative); Cannabinoid Screen Urine Negative (Negative); Cocaine Screen Urine Negative (Negative); Methadone Screen Urine Negative (Negative); Methamphetamines Screen Urine Negative (Negative); Opiate Screen Urine Negative (Negative); Oxycodone Screen Urine Negative (Negative); Phencyclidine Screen Urine Negative (Negative); Tricyclic Antidepressant Urine Negative (Negative)
== END 2024-03-21 12:01 | disposition home or self-care (01) ==
PROVIDERS: Emergency Provider Family Medicine; PCP Family Medicine
DX: F10.129 Alcohol abuse with intoxication, unspecified (principal)
CPT/HCPCS: 36415; 80053; 80143; 80179; 80306; 81003; 82077; 85025; 96374; 96375; 99284; J2405; J3411; J7030